=== PATIENT | female | born 1960 | race American Indian/Alaskan Native ===

== ENCOUNTER 2019-01-18 18:37 | Emergency (ER) | payer OTHER ==
[2019-01-18] MEDS ORDERED: IBUPROFEN PO ONE (19:33)
[2019-01-18] MEDS ORDERED: IBUPROFEN ONE (19:34)
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
[2019-01-18] MEDS ORDERED: NORCO 5/325 PO ONE (22:40)
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
[2019-01-18 23:25] VITALS: BP 124/87
== END 2019-01-18 23:46 | disposition home or self-care (01) ==
LOC: ED 18:37
DX: S16.1XXA Strain of muscle, fascia and tendon at neck level, initial encounter (principal); V87.7XXA Person injured in collision between other specified motor vehicles (traffic), initial encounter; Y93.89 Activity, other specified; Y92.488 Other paved roadways as the place of occurrence of the external cause; Y99.8 Other external cause status
CPT/HCPCS: 72125; 99284